=== PATIENT | female | born 2000 | race Caucasian/White ===

== ENCOUNTER 2020-11-07 15:42 | Emergency (ER) | payer SELFPAY ==
[~2020-11-07 15:42] MED LIST: CELEXA10 MG PO; METHYLPHENID5 MG PO
[2020-11-07] MEDS ORDERED: PROAIR HFA108 MCG/AC PO (16:59)
[2020-11-07] MEDS ORDERED: CHERATUSSIN PO (16:59)
[2020-11-07] MEDS ORDERED: ZPAK PO (16:59)
[2020-11-07 17:08] VITALS: BP 139/71
== END 2020-11-07 17:08 | disposition home or self-care (01) | DRG 153 ==
LOC: ED 15:42
DX: J06.9 Acute upper respiratory infection, unspecified (principal); Z20.822 Contact with and (suspected) exposure to COVID-19

== ENCOUNTER 2021-05-22 21:27 | Emergency (ER) | payer SELFPAY ==
[~2021-05-22] VITALS: Ht 160 cm; Wt 52.6 kg
[~2021-05-22 21:27] MED LIST changes: +CHERATUSSIN PO; +PROAIR HFA108 MCG/AC PO; +ZPAK PO
[2021-05-22 23:09] LABS: URINE BILIRUBIN - DIPSTICK NEGATIVE (NEGATIVE); URINE BLOOD DIPSTICK NEGATIVE (NEGATIVE); URINE COLOR YELLOW; URINE GLUCOSE - DIPSTICK NEGATIVE (NEGATIVE); URINE KETONE NEGATIVE (NEGATIVE); URINE LEUK ESTERASE NEGATIVE (NEGATIVE); URINE PH 7.5 (4.5-8.0); URINE PROTEIN - DIPSTICK NEGATIVE (NEG-TRACE); URINE UROBILINOGEN - DIPSTICK 0.2 E.U./dL (0.2)
[2021-05-22 23:11] LABS: URINE NITRITE - DIPSTICK NEGATIVE (Negative)
[2021-05-22 23:30] VITALS: BP 110/72
== END 2021-05-22 23:30 | disposition home or self-care (01) | DRG 951 ==
LOC: ED 21:27
PROVIDERS: Family Medicine
DX: Z32.02 Encounter for pregnancy test, result negative (principal); F17.210 Nicotine dependence, cigarettes, uncomplicated

== ENCOUNTER 2021-07-14 01:48 | Emergency (ER) | payer SELFPAY ==
[~2021-07-14] VITALS: Ht 160 cm; Wt 54.5 kg
[2021-07-14 02:53] LABS: HEMATOCRIT 38.5 % (37.0-47.0); HEMOGLOBIN 12.6 g/dl (12.0-16.0); IMMATURE GRANULOCYTES 0.3 % (0.0-5.0); MEAN CORPUSCULAR HGB 27.8 pG CALC (26.0-32.0); MEAN CORPUSCULAR HGB CONC 32.7 g/dL CAL (32.0-36.0); NEUT# 2.99 thou/uL (2.00-7.15); RED BLOOD COUNT 4.53 mill/uL (4.20-5.60); RED CELL DISTRI WIDTH 12.4 % (11.5-15.5)
[2021-07-14 03:06] LABS: ALBUMIN 3.9 g/dL (3.2-5.0); ALKALINE PHOSPHATASE 69 u/l (38-126); ANION GAP 13 (6-22 (CALC)); BILIRUBIN, TOTAL 0.5 mg/dL (0.0-1.4); BUN 11 mg/dL (7-17); BUN/CREATININE RATIO 17 (12-20 (CALC)); CARBON DIOXIDE 24 mmol/l (22-30); CHLORIDE 104 mmol/l (95-108); CREATININE 0.6 mg/dL (0.5-1.0); GFR > 60 ML/MIN (>=60 (CALC)); GFR FOR AFR.AMER. > 60 ML/MIN (>=60 (CALC)); POTASSIUM 3.3 mmol/l (3.5-5.1); SGOT/AST 23 u/l (14-36); SODIUM 137 mmol/l (137-146); TOTAL PROTEIN 7.1 g/dL (6.3-8.2)
[2021-07-14 03:34] VITALS: BP 112/79
== END 2021-07-14 03:45 | disposition home or self-care (01) | DRG 179 ==
LOC: ED 01:48
PROVIDERS: Family Medicine
DX: U07.1 COVID-19 (principal); F17.200 Nicotine dependence, unspecified, uncomplicated

== ENCOUNTER 2021-11-04 05:40 | Emergency (ER) | payer SELFPAY ==
[~2021-11-04] VITALS: Ht 162.6 cm; Wt 57.0 kg
[2021-11-04 05:45] VITALS: BP 137/89
[2021-11-04 06:00] VITALS: BP 115/78
[2021-11-04 06:25] LABS: HEMATOCRIT 41.7 % (37.0-47.0); HEMOGLOBIN 13.6 g/dl (12.0-16.0); IMMATURE GRANULOCYTES 0.1 % (0.0-5.0); MEAN CELL VOLUME 85.6 fL CALC (80.0-100.0); MEAN CORPUSCULAR HGB 27.9 pG CALC (26.0-32.0); MEAN CORPUSCULAR HGB CONC 32.6 g/dL CAL (32.0-36.0); NEUT# 6.04 thou/uL (2.00-7.15); RED BLOOD COUNT 4.87 mill/uL (4.20-5.60); RED CELL DISTRI WIDTH 11.7 % (11.5-15.5)
[2021-11-04 06:30] VITALS: BP 117/72
[2021-11-04 06:38] LABS: URINE BILIRUBIN - DIPSTICK NEGATIVE (NEGATIVE); URINE BLOOD DIPSTICK NEGATIVE (NEGATIVE); URINE CLARITY CLEAR; URINE COLOR YELLOW; URINE GLUCOSE - DIPSTICK NEGATIVE (NEGATIVE); URINE KETONE TRACE mg/dL (NEGATIVE); URINE LEUK ESTERASE NEGATIVE (Negative); URINE NITRITE - DIPSTICK NEGATIVE (Negative); URINE PH 5.5 (4.5-8.0); URINE PROTEIN - DIPSTICK NEGATIVE (NEG-TRACE); URINE SPECIFIC GRAVITY 1.025; URINE UROBILINOGEN - DIPSTICK 0.2 E.U./dL (0.2)
[2021-11-04 06:45] VITALS: BP 106/70
[2021-11-04 07:04] LABS: ALKALINE PHOSPHATASE 74 u/l (38-126); ANION GAP 14 (6-22 (CALC)); BILIRUBIN, TOTAL 0.3 mg/dL (0.0-1.4); BUN 14 mg/dL (7-17); BUN/CREATININE RATIO 19 (12-20 (CALC)); CARBON DIOXIDE 23 mmol/l (22-30); CHLORIDE 106 mmol/l (95-108); CREATININE 0.7 mg/dL (0.5-1.0); ETHYL ALCOHOL 0 mg/dl (0-30); GFR > 60 ML/MIN (>=60 (CALC)); GFR FOR AFR.AMER. > 60 ML/MIN (>=60 (CALC)); POTASSIUM 3.9 mmol/l (3.5-5.1); SODIUM 139 mmol/l (137-146); TOTAL PROTEIN 7.8 g/dL (6.3-8.2)
[2021-11-04 07:08] LABS: ALBUMIN 4.7 g/dL (3.2-5.0); SGOT/AST 42 u/l (14-36)
[2021-11-04 07:30] VITALS: BP 105/70
[2021-11-04 08:00] VITALS: BP 105/68
== END 2021-11-04 08:21 | disposition home or self-care (01) | DRG 605 ==
LOC: ED 05:40
PROVIDERS: Family Medicine
DX: S00.03XA Contusion of scalp, initial encounter (principal); S40.022A Contusion of left upper arm, initial encounter; S40.021A Contusion of right upper arm, initial encounter; S16.1XXA Strain of muscle, fascia and tendon at neck level, initial encounter; Y04.2XXA Assault by strike against or bumped into by another person, initial encounter; Y92.008 Other place in unspecified non-institutional (private) residence as the place of occurrence of the external cause
CPT/HCPCS: Q9967